=== PATIENT | female | born 1995 | race American Indian/Alaskan Native ===

== ENCOUNTER 2018-02-04 15:20 | Outpatient (CLI) | payer OTHER ==
[2018-02-04] MEDS ORDERED: LACTATED RINGERS 500 ML IV ONE (16:06)
[2018-02-04 16:46] LABS: Bilirubin,Urine NEG (Negative); Blood,Urine NEG (Negative); Color,Urine Yellow (Yellow); Mucus,Urine FEW /HPF; Protein,Urine <15 mg/dL mg/dL (Negative); Urobilinogen,Urine < 2.0 mg/dL (<2.0)
[2018-02-04] MEDS ORDERED: LACTATED RINGERS 1,000 ML IV ONE (17:00)
[2018-02-04 18:44] VITALS: BP 108/60
--- NOTE | 2018-02-05 00:31 | Ultrasound Report ---
FINAL REPORT EXAM: US OB LIMITED HISTORY: decreased movement; SHEBA COMPARISON: None available. TECHNIQUE: Several real-time grayscale and color Doppler images were obtained. FINDINGS: Limited exam performed. Single live IUP. heart rate 130 beats per minute. SHEBA 19.5 centimeters within normal limits. Placenta location fundal and posterior. presentation breech. IMPRESSION: Limited exam demonstrating presentation. presentation is breech. Normal SHEBA.
--- NOTE | 2018-02-05 00:32 | Ultrasound Report ---
FINAL REPORT EXAM: US OB BPP WO NON-STRESS HISTORY: decreased movement; SHEBA COMPARISON: Limited Ob ultrasound from the same date. TECHNIQUE: Several real-time grayscale and color Doppler images were obtained. FINDINGS: Normal breathing movements, movements, posterior tone and qualitative amniotic fluid volume. heart rate 130 beats per minute. Largest pocket of amniotic fluid 6.0 centimeters. IMPRESSION: Biophysical profile score 8/8.
== END 2018-02-04 18:55 | disposition home or self-care (01) ==
LOC: TRG 15:20
PROVIDERS: ATTEND Obstetrics & Gynecology
DX: O47.03 False labor before 37 completed weeks of gestation, third trimester (principal); Z3A.33 33 weeks gestation of pregnancy
CPT/HCPCS: 59025; 76815; 76819; 81001

== ENCOUNTER 2018-02-13 08:40 | Outpatient (CLI) | payer OTHER ==
[2018-02-13] MEDS ORDERED: LACTATED RINGERS 500 ML IV ONE (09:00)
[2018-02-13 09:05] VITALS: BP 102/57
[2018-02-13 09:36] LABS: Bacteria,Urine 2+ /HPF (Negative); Bilirubin,Urine NEG (Negative); Blood,Urine SM (Negative); Color,Urine Yellow (Yellow); Hyaline Casts,Urine 1 /LPF; Mucus,Urine FEW /HPF; Protein,Urine <15 mg/dL mg/dL (Negative); Urobilinogen,Urine < 2.0 mg/dL (<2.0)
[2018-02-13] MEDS ORDERED: BICITRA PO ONE (10:00)
[2018-02-13] MEDS ORDERED: BICITRA ONE (10:00)
== END 2018-02-13 10:26 | disposition home or self-care (01) ==
LOC: TRG 08:40
PROVIDERS: ATTEND Obstetrics & Gynecology
DX: Z34.93 Encounter for supervision of normal pregnancy, unspecified, third trimester (principal); Z3A.34 34 weeks gestation of pregnancy
CPT/HCPCS: 59025; 81001

== ENCOUNTER 2018-03-15 11:44 | Outpatient (CLI) | payer OTHER ==
[2018-03-15 13:55] VITALS: BP 115/69
--- NOTE | 2018-03-15 15:54 | Ultrasound Report ---
FINAL REPORT EXAM: US OB BPP WO NON-STRESS HISTORY: well being TECHNIQUE: Transabdominal sonography of the pelvis. PRIORS: 04 Feb 2018. FINDINGS: Biophysical profile: breathing movements: 2/2 movements: 2/2 posture and tone: 2/2 Qualitative amniotic fluid volume: 2/2 Total: 8/8 heart rate 142 beats per minute. IMPRESSION: 1. Biophysical profile as noted above.
--- NOTE | 2018-03-15 16:02 | Ultrasound Report ---
FINAL REPORT EXAM: US OB LIMITED HISTORY: well being; SHEBA TECHNIQUE: Directed sonography of the pelvis. PRIORS: 04 Feb 2018. FINDINGS: Limited examination performed. Single, live IUP. heart rate 142 beats per minute. Amniotic fluid index 15.9 cm. IMPRESSION: 1. Please see above.
--- NOTE | 2018-03-15 16:20 | Event Note ---
Date: 03/15/18 Pt seen and evaluated. NOT in active labor. SHEBA normal as well as bpp of 10/10. No s/sx of SROM at this time.Tacycardia responds to po hydration. she does not have SOB at the time of my exam.She is to be d/c home and advised to f/u next week as she has missed last several apts. She expressed understanding and questions were addressed and aswered. Vistaril was offered and pt agrees to take. Will hold until pt transportation has arrived. cx: 1/long/post/-3
== END 2018-03-15 15:34 | disposition home or self-care (01) ==
LOC: TRG 11:44
PROVIDERS: ATTEND Obstetrics & Gynecology
DX: O47.1 False labor at or after 37 completed weeks of gestation (principal); Z3A.39 39 weeks gestation of pregnancy
CPT/HCPCS: 76815; 76819

== ENCOUNTER 2018-03-22 22:23 | Inpatient (IN) | payer OTHER ==
[2018-03-22] MEDS ORDERED: LACTATED RINGERS 1,000 ML ONE (23:05)
--- NOTE | 2018-03-22 23:07 | History and Physical Report ---
History of Present Illness Date of examination: 03/22/18 Date of admission: 03/22/18 22:24 Chief complaint: SROM at 2030 History of present illness: Past History : 2 Term Births: 1 Living Children: 1 Para: 1 # 1 Delivery date: 2016 Weeks Gestation: ft Delivery type: Anesthesia type: epidural Sex: Female weight: 6-5 Comments: no complications Past Medical History: Negative Past Medical History Past Surgical History: Negative Past Surgical History Past Medical History Surgery (Non-obstetrician gynecologist): Negative Past Surgical History Abnormal PAP: negative FLORA Exposure: negative Infertility: negative Uterine Anomaly: negative Uterine Surgery (not C/S): negative Other Gynecologic Problems: negative Medical History Comments: neg Family Hx: DM HTN Social Hx: single no e/t/d Infection History Hx of STD: chlamydia Varicella/Chicken Pox Status: Unknown Infection History Comments: not sure if had vaccne for chicken pox or not Genetic History Congenital Heart Defect: Mom: no Dad: no Vane Disease: Mom: no Dad: no Thalassemia Mom: no Dad: no Neural Tube Defect Mom: no Dad: no Down's Syndrome Mom: no Dad: no Danie-Sachs Mom: no Dad: no Sickle Cell Disease/Trait Mom: no Dad: no Hemophilia Mom: no Dad: no Muscular Dystrophy Mom: no Dad: no Cystic Fibrosis Mom: no Dad: no Breathitt Chorea Mom: no Dad: no Mental Retardation Mom: no Dad: no Fragile X Mom: no Dad: no Other Genetic/Chromosomal Disorder Mom: no Dad: no Child w/other defect Mom: no Dad: no Comments/Counseling: autism- twin brother and foc brother Enviromental Exposures Xray Exposure: no Medication, drug, or alcohol use since LMP: no Chemical/Other Exposure: no Exposure to Cat Liter: no Hx of Parvovirus (Fifth Disease): no Occupational Exposure to Children: none Active Medications (reviewed today): None Current Allergies (reviewed today): No known allergies Past History - Obstetrical History Expected Date of Delivery: 03/30/18 Actual Gestation: 38 Week(s) 6 Day(s) : 2 Medications and Allergies Allergies Allergy/AdvReac Type Severity Reaction Status Date / Time No Known Allergies Allergy Verified 02/04/18 15:46 Home Medications Medication Instructions Recorded Confirmed Last Taken Type Multivit-Minerals/Folic Acid 200 mcg PO DAILY 02/04/18 03/15/18 02/04/18 09:00 History [Women's Multivitamin Gummies] 1 Review of Systems All systems: negative - Vital Signs Vital signs: Vital Signs Temp Pulse Resp BP Pulse Ox 96.9 F L 111 H 18 123/70 100 03/22/18 22:54 03/22/18 22:54 03/22/18 22:54 03/22/18 22:54 03/22/18 22:54 Temp Pulse Resp BP Pulse Ox 96.9 F L 113 H 18 123/70 100 03/22/18 22:54 03/22/18 22:54 03/22/18 22:54 03/22/18 22:54 03/22/18 22:54 - Physical Exam Breasts: Positive: deferred Cardiovascular: Regular rate Lungs: Positive: Normal air movement Abdomen: Positive: normal appearance, soft Genitourinary (Female): Positive: normal external genitalia, normal perenium Vulva: both: normal Uterus: Positive: enlarged Extremities: Positive: normal. Negative: tenderness, edema Deep Tendon Reflex Grade: Normal +2 - Obstetrical FHR: category 1 Uterine Contraction Monitor Mode: External Cervical Dilatation: 2 (+fern) Cervical Effacement Percentage: 70 station: -2, posterior Uterine Contraction Pattern: Irregular Results All other labs normal. Assessment and Plan - Patient Problems (1) 38 weeks gestation of Current Visit: Yes Status: Acute (2) Rupture of membranes Current Visit: Yes Status: Acute Plan to address problem: Admit Pitocin augmentation
[2018-03-22] MEDS ORDERED: SUBLIMAZE IV PRN (23:11)
[2018-03-22] MEDS ORDERED: XYLOCAINE 2% INFILTRATI ONE (23:11)
[2018-03-22] MEDS ORDERED: ePHEDrine SULFATE IV PRN (23:11)
[2018-03-22] MEDS ORDERED: BRETHINE IVP PRN (23:11)
[2018-03-22] MEDS ORDERED: NARCAN 0.4 MG/1 ML IV PRN (23:11)
[2018-03-22] MEDS ORDERED: STADOL IV PRN (23:11)
[2018-03-22] MEDS ORDERED: MINERAL OIL PO PRN (23:11)
[2018-03-22] MEDS ORDERED: NUBAIN IV PRN (23:11)
[2018-03-22] MEDS ORDERED: ZOFRAN IV PRN (23:11)
[2018-03-22] MEDS ORDERED: BRETHINE SUB-Q PRN (23:11)
[2018-03-22] MEDS ORDERED: PITOCin/NS 20 UNIT/1000ML DRIP 20 UNITS/1,000 ML BAG IV SCH (23:45)
[2018-03-22] MEDS ORDERED: LACTATED RINGERS 1,000 ML IV SCH (23:45)
[2018-03-22] MEDS ORDERED: PITOCin/NS 30 UNIT/500ML 30 UNITS/500 ML BAG IV SCH ×2 (23:45)
[2018-03-23 00:54] LABS: Hematocrit 30.4 % (30.3-42.9); Hemoglobin 9.5 gm/dl (10.1-14.3); Mean Corpuscular HGB Conc 31 % (30-34); Platelet Count 236 K/mm3 (140-440); Red Blood Count 4.35 M/mm3 (3.65-5.03); Red Cell Distribution Width 17.7 % (13.2-15.2)
[2018-03-23 01:18] LABS: Mean Corpuscular Hemoglobin 22 pg (28-32); Mean Corpuscular Volume 70 fl (79-97)
[2018-03-23] MEDS ORDERED: PEPCID IV SCH (03:00)
[2018-03-23] MEDS ORDERED: fentaNYL-BUPIV 2 MCG/ML-0.125% 200 MCG/100 ML BAG EPIDURAL SCH (04:00)
--- NOTE | 2018-03-23 04:06 | Anesthesia Consultation ---
Anesthesia Consult and Med Hx Date of service: 03/23/18 - Airway Anesthetic Teeth Evaluation: Good ROM Head & Neck: Adequate Mental/Hyoid Distance: Adequate Mallampati Class: Class II Intubation Access Assessment: Probably Good - Pulmonary Exam CTA: Yes - Cardiac Exam Cardiac Exam: RRR - Pre-Operative Health Status ASA Pre-Surgery Classification: ASA2, Emergency Proposed Anesthetic Plan: Epidural, Spinal - Pulmonary Hx Asthma: No COPD: No Hx Pneumonia: No - Cardiovascular System Hx Hypertension: No - Central Nervous System Hx Seizures: No Hx Psychiatric Problems: No - Endocrine Hx Renal Disease: No Hx End Stage Renal Disease: No Hx Hypothyroidism: No Hx Hyperthyroidism: No - Hematic Hx Anemia: No Hx Sickle Cell Disease: No - Other Systems Hx Alcohol Use: No
--- NOTE | 2018-03-23 05:34 | Procedure Note ---
OB Delivery Note - Delivery Date of Delivery: 03/23/18 Surgeon: SHANTE MCCLENDON Estimated blood loss: 200cc - Vaginal Delivery presentation: vertex Delivery position: OA Intrapartum events: none Delivery induction: none Delivery augmentation: pitocin Delivery monitor: external FHT, external uterine Route of delivery: Delivery placenta: spontaneous (intact) Episiotomy: none Delivery laceration: 2nd degree Delivery repair: vicryl (3-0, usual fashion) Anesthesia: epidural - A at 1 minute: 8 at 5 minutes: 9 Infant Gender: Female (6#10)
[2018-03-23] MEDS ORDERED: DULCOLAX PR PRN (08:23)
[2018-03-23] MEDS ORDERED: ZOFRAN IV PRN (08:23)
[2018-03-23] MEDS ORDERED: LANSINOH TP PRN (08:23)
[2018-03-23] MEDS ORDERED: BENADRYL PO PRN (08:23)
[2018-03-23] MEDS ORDERED: TYLENOL PO PRN (08:23)
[2018-03-23] MEDS ORDERED: PHENERGAN PO PRN (08:23)
[2018-03-23] MEDS ORDERED: MILK OF MAGNESIA PO PRN (08:23)
[2018-03-23] MEDS ORDERED: PHENERGAN PR PRN (08:23)
[2018-03-23] MEDS ORDERED: SODIUM CHLORIDE FLUSH SYRINGE 10 ML IV NR (08:23)
[2018-03-23] MEDS ORDERED: TUCKS PAD TP PRN (08:23)
[2018-03-23] MEDS: MOTRIN PO SCH ×3 (12:35→23:10)
[2018-03-23 19:50] LABS: Hematocrit 24.3 % (30.3-42.9); Hemoglobin 7.6 gm/dl (10.1-14.3)
[2018-03-24] MEDS: MOTRIN PO SCH (05:11)
[2018-03-24] MEDS ORDERED: BOOSTRIX IM ONE (05:26)
--- NOTE | 2018-03-24 06:49 | Discharge Summary ---
Providers - Providers Date of Admission: 03/22/18 22:24 Date of discharge: 03/24/18 (pt states she feels great; request d/c today) Attending physician: SHANTE MCCLENDON 03/23/18 08:23 Consult to Rn Imaging [CONS] Routine Reason For Exam: assistance with , SNS Primary care physician: SHANTE MCCLENDON Hospitalization Reason for admission: active labor Delivery: Episiotomy: none Laceration: none Incision: normal Other procedures: none complications: none Discharge diagnosis: IUP at term delivered [place] baby: female Hospital course: uncomplicated vaginal delivery course complicated by anemia; tachycardia Pt has been OOB to shower and AM care denies dizziness no increased bleeding. No c/o SOB. VSS with exception of tachycardia. H&H 04/29 drop r/t blood loss from delivery; pt is chronically anemia. Doing well s/p vag delivery; anemia P: d/c today with instructions RX po iron, colace, motrin. Will consult with . Condition at discharge: Good Disposition: DC-01 TO HOME OR SELFCARE - Discharge Diagnoses (1) Spontaneous vaginal delivery Status: Acute Comment: RTO 4 weeks PP care (2) Anemia affecting Status: Acute Qualifiers: Trimester: unspecified trimester Qualified Code(s): O99.019 - Anemia complicating , unspecified trimester Comment: d/c home on po iron; pt instructed to call with dizziness and or SOB Plan - Discharge Medications Prescriptions: Docusate Sodium [Colace] 100 mg PO BID PRN #60 capsule PRN Reason: Constipation Ferrous Sulfate [Feosol 325 MG tab] 325 mg PO BID #60 tablet Ibuprofen [Motrin 800 MG tab] 800 mg PO TID PRN #30 tablet PRN Reason: Pain - Provider Discharge Summary Activity: routine, no sex for 6 weeks, no heavy lifting 4 weeks, no strenuous exercise Diet: other (increase dietary intake of iron rich foods) Instructions: routine Additional instructions: [] Smoking cessation referral if applicable(refer to patient education folder for contact #) [] Refer to [facility] Booklet Call your doctor immediately for: * Fever > 100.5 * Heavy vaginal bleeding ( >1 pad per hour) * Severe persistent headache * Shortness of breath * Reddened, hot, painful area to leg or breast * Drainage or odor from incision. * Keep incision clean and dry at all times and follow doctor's instructions regarding bathing/showering - Follow up plan Follow up: SHANTE MCCLENDON MD [Primary Care Provider] - 04/22/18 (Congratulations! Call [phone] to schedule your visit in 4 weeks. Take medications as prescribed. Call with any concerns about shortness of breathe or dizziness. Call with any concerns.)
[2018-03-24] MEDS ORDERED: DERMOPLAST TP PRN (12:05)
[2018-03-24 12:28] VITALS: BP 116/62
== END 2018-03-24 12:49 | disposition home or self-care (01) | DRG 775 ==
LOC: TRG 22:23 → LD 22:24 → OB 03-23 07:58
PROVIDERS: ADMIT Obstetrics & Gynecology; ATTEND Obstetrics & Gynecology
PROC: 10E0XZZ Delivery of Products of Conception, External Approach (ICD-10-PCS; principal; 2018-03-23)
PROC: 0KQM0ZZ Repair Perineum Muscle, Open Approach (ICD-10-PCS; 2018-03-23)
PROC: 3E0R3BZ Introduction of Anesthetic Agent into Spinal Canal, Percutaneous Approach (ICD-10-PCS; 2018-03-23)
PROC: 00HU33Z Insertion of Infusion Device into Spinal Canal, Percutaneous Approach (ICD-10-PCS; 2018-03-23)
DX: O70.1 Second degree perineal laceration during delivery (principal); Z37.0 Single live birth; Z3A.38 38 weeks gestation of pregnancy; O99.02 Anemia complicating childbirth; D64.9 Anemia, unspecified
CPT/HCPCS: 36415; 85014; 85018; 85027; 86592; 86850; 86900; 86901; 87806; 99211; G0463; J0595; J2405; J2590; J7120